=== PATIENT | female | born 1945 | race Caucasian/White ===

== ENCOUNTER → 2017-01-27 | Outpatient (CLI) | payer MEDICARE, BC ==
[~2017-01-27] MED LIST: ACETAMINOPHEN650 M2 PO; ALDACTONE25 MG PO; BUPIVACAINE IDER; CELEBREX200 MG PO; COLACE100 MG PO; COLCHICINE0.6 MG PO; DELTASONE5 MG PO; DULCOLAX10 MG R; ENULOSE UD L30 ML/EA PO; FERREX 150150 MG PO; FOLIC ACID1 MG PO; IPRAT-ALBUT 0.5-3 ML NEB; K-TAB 10MEQ10 MEQ PO; LEVOTHROID (S150 MCG PO; LIPITOR10 MG PO; LOPRESSOR25 MG PO; MILK OF MA400 MG/5 M PO; MIRALAX17 GM PO; NEURONTIN600 MG PO; NORVASC2.5 MG PO; OSCAL + D500 MG PO; OXYGEN M-15 INH; PERCOCET 10-321 EACH PO; PRILOSEC20 M1 PO; PRILOSEC20 MG PO; REQUIP1 MG PO; RHEUMATREX2.5 MG PO; ROBITUSSIN DM120 ML PO; RYTHMOL SR (SU225 MG PO; RYTHMOL225 M1 PO; SENOKOT S (S1 TABLET PO; SYMBICORT 80-10.2 GM INH; ZANAFLEX4 MG PO; [UNRECOGNIZED DRUG - OTHER] PO
== END | disposition disaster alternative care site (69) ==
LOC: GAMB 12:19
DX: I46.9 Cardiac arrest, cause unspecified (principal); S00.83XD Contusion of other part of head, subsequent encounter; R40.20 Unspecified coma; X58.XXXA Exposure to other specified factors, initial encounter
CPT/HCPCS: J0171; J7030